=== PATIENT | male | born 1945 | race Asian ===

== ENCOUNTER 2016-12-09 01:22 | Observation (INO) | payer OTHER ==
--- NOTE | 2016-12-09 01:40 | PDOC ---
History of Present Illness - General History Source: Patient, Spouse Exam Limitations: No Limitations - History of Present Illness Initial Comments: 12/09/16 02:08 The patient is a 71 year old male with significant past medical history of hypertension, hyperlipidemia, and BPH who presents to the ED with s/p unwitnessed syncopal episode just prior to arrival. Patient reports he had a little too much eat when he developed some abdominal discomfort. He decided to go to the bathroom, where he found himself straining and subsequently loss consciousness. As per , she states finding the patient on the floor after she heard a loud noise. At time of evaluation, he reports having some chest discomfort and states never experiencing similar symptoms in the past. He denies headache, lightheadedness, diaphoresis, SOB, jaw pain, arm pain, shoulder pain, and nausea. The patient denies fever, chills, cough, vomiting, and diarrhea. Allergies: NKDA Social History: No alcohol, tobacco, or drug use reported. Past Surgical History: None reported <Nancy Barry - Last Filed: 12/09/16 03:18> - General History Source: Patient <Jarod De Paz - Last Filed: 12/09/16 03:51> - General Chief Complaint: Syncope/Near Syncope Stated Complaint: SYNCOPY Time Seen by Provider: 12/09/16 01:39 Past History <Nancy Barry - Last Filed: 12/09/16 03:18> - Psycho/Social/Smoking Cessation Hx Suicidal Ideation: No Smoking History: Never smoked Have you smoked in the past 12 months: No Information on smoking cessation initiated: No Hx Alcohol Use: No Drug/Substance Use Hx: No <Jarod De Paz - Last Filed: 12/09/16 03:51> - Past Medical History Allergies/Adverse Reactions: Allergies Allergy/AdvReac Type Severity Reaction Status Date / Time No Known Allergies Allergy Verified 12/09/16 01:35 Home Medications: Ambulatory Orders Amlodipine Besylate [Norvasc -] 10 mg PO DAILY 12/09/16 Cholecalciferol (Vitamin D3) [Vitamin D3] 5,000 unit PO DAILY 12/09/16 FA/Vit C/E/Zinc/Copper/Lut/Nestor [Ocuvel Capsule] 1 each PO DAILY 12/09/16 Simvastatin [Zocor -] 20 mg PO DAILY 12/09/16 Terazosin HCl 2 mg PO HS 12/09/16 Review of Systems - Review of Systems Able to Perform ROS?: Yes Comments:: 12/09/16 02:09 CONSTITUTIONAL: Absent: fever, chills, diaphoresis, generalized weakness, malaise, loss of appetite HEENT: Absent: rhinorrhea, nasal congestion, throat pain, throat swelling, difficulty swallowing, mouth swelling, ear pain, eye pain, visual Changes CARDIOVASCULAR: +chest discomfort, syncope Absent: palpitations, irregular heart rate, lightheadedness, peripheral edema RESPIRATORY: Absent: cough, shortness of breath, dyspnea with exertion, orthopnea, wheezing, stridor, hemoptysis GASTROINTESTINAL: +abdominal discomfort Absent: abdominal distension, nausea, vomiting, diarrhea, constipation, melena, hematochezia GENITOURINARY: Absent: dysuria, frequency, urgency, hesitancy, hematuria, flank pain, genital pain MUSCULOSKELETAL: Absent: myalgia, arthralgia, joint swelling SKIN: Absent: rash, itching, pallor NEUROLOGIC: Absent: headache, focal weakness or paresthesias, dizziness, unsteady gait, seizure, mental status changes, bladder or bowel incontinence <Nancy Barry - Last Filed: 12/09/16 03:18> *Physical Exam - Vital Signs Last Vital Signs Temp Pulse Resp BP Pulse Ox 97.6 F 58 L 20 123/74 95 12/09/16 01:33 12/09/16 01:33 12/09/16 01:33 12/09/16 01:33 12/09/16 01:33 - Physical Exam Comments: 12/09/16 02:13 GENERAL: Well developed, well nourished. Awake and alert. Mild distress. HEENT: Normocephalic, atraumatic. No racoon or walden sign. PERRLA, EOMI. No conjunctival pallor. Sclera are non-icteric. Moist mucous membranes. Oropharynx is clear. No hemotympanum. NECK: Supple. Full ROM. No JVD. Carotid pulses 2+ and symmetric, without bruits. No thyromegaly. No lymphadenopathy. CARDIOVASCULAR: Bradycardia. Regular rhythm. No murmurs, rubs, or gallops. Distal pulses are 2+ and symmetric. PULMONARY: No evidence of respiratory distress. Lungs clear to auscultation bilaterally. No wheezing, rales or rhonchi. ABDOMINAL: Soft. Non-tender. Non-distended. No rebound or guarding. No organomegaly. Normoactive bowel sounds. MUSCULOSKELETAL Normal range of motion at all joints. No bony deformities or tenderness. No CVA tenderness. EXTREMITIES: No cyanosis. No clubbing. No edema. No calf tenderness. SKIN: Warm and dry. Normal capillary refill. No rashes. No jaundice. NEUROLOGICAL: Alert, awake, appropriate. Answering questions slowly, but appropriately. Cranial nerves 2-12 intact. Moving all extremities. No gross focal neurological deficits. PSYCHIATRIC: Cooperative. Good eye contact. Appropriate mood and affect. <Nancy Barry - Last Filed: 12/09/16 03:18> - Vital Signs Last Vital Signs Temp Pulse Resp BP Pulse Ox 97.6 F 58 L 20 123/74 95 12/09/16 01:33 12/09/16 01:33 12/09/16 01:33 12/09/16 01:33 12/09/16 01:33 <Jarod De Paz - Last Filed: 12/09/16 03:51> Heart Score/ECG Review - ECG Impressions Comment:: 12/09/16 02:09 Sinus bradycardia @55bpm RBBB Abnormal ECG <Nancy Barry - Last Filed: 12/09/16 03:18> - History History: Moderately suspicious - Electrocardiogram EKG: Non specific repolarization disturbance - Age Age: >/= 65 - Risk Factors Risk Factors Heart Score: Yes Hx Hypercholesterolemia, Yes Hx Hypertension Based on the list above the patient has:: 1-2 risk factors - Troponin Troponin: </= normal limit - Score Heart Score - Total: 5 <Jarod De Paz - Last Filed: 12/09/16 03:51> ED Treatment Course - LABORATORY CBC & Chemistry Diagram: 12/09/16 01:32 12/09/16 01:32 - ADDITIONAL ORDERS Additional order review: 12/09/16 01:32 RBC 4.35 MCV 88.4 MCHC 33.9 RDW 13.6 MPV 7.6 Neutrophils % 67.4 Lymphocytes % 21.9 Monocytes % 7.5 Eosinophils % 2.1 Basophils % 1.1 - RADIOLOGY Radiograph Interpretation: 12/09/16 03:18 Exam: Noncontrast CT head Reviewed by Imaging conservation biology professor: Findings: Multiple axial images were obtained of the brain without contrast. There is no mass-effect, midline shift or hemorrhage. There is no intra-axial or extra-axial fluid collection. Atrophic involutional changes and chronic ischemic periventricular white matter changes are noted. The visualized portions of the paranasal sinuses are clear. The middle ear cavities and mastoids are clear. No calvarial fractures seen. Impression: No mass effect or intracranial hemorrhage. <Nancy Barry - Last Filed: 12/09/16 03:18> - LABORATORY CBC & Chemistry Diagram: 12/09/16 01:32 12/09/16 01:32 - RADIOLOGY Radiology Studies Ordered: Category Date Time Status HEAD CT WITHOUT CONTRAST [CT] Stat CT Scan 12/09/16 01:36 Ordered CHEST X-RAY PORTABLE* [RAD] Stat Radiology 12/09/16 01:36 Ordered <Jarod De Paz - Last Filed: 12/09/16 03:51> Medical Decision Making - Medical Decision Making 12/09/16 03:50 Dr. De Paz: The scribe's documentation has been prepared under my direction and personally reviewed by me in its entirery. I confirm that the note above accurately reflects all work, treatment, procedures, and medical decision making performed by me. <Jarod De Paz - Last Filed: 12/09/16 03:51> *DC/Admit/Observation/Transfer - Attestations Scribe Attestion: 12/09/16 02:10 Documentation prepared by Nancy Barry, acting as caregivers non medical for Jarod De Paz MD <Nancy Barry - Last Filed: 12/09/16 03:18> - Discharge Dispostion Admit: Yes <Jarod De Paz - Last Filed: 12/09/16 03:51> Diagnosis at time of Disposition: Syncope Qualifiers: Encounter type: initial encounter - Discharge Dispostion Condition at time of disposition: Stable
[2016-12-09] MEDS ORDERED: SODIUM CHLORIDE 1,000 ML IV STA (01:42)
[2016-12-09 01:51] LABS: BASOPHIL 1.1 % (0-2.0); EOSINOPHIL 2.1 % (0-4.5); MCHC 33.9 g/dl (32.0-35.9); MEAN CELL VOLUME 88.4 fl (80-96); MEAN PLT VOLUME 7.6 fl (7.5-11.1); NEUTROPHILS 67.4 % (42.8-82.8); PLATELET COUNT 203 K/MM3 (134-434); RDW 13.6 % (11.9-15.9)
[2016-12-09 02:04] LABS: INR 1.03 (0.82-1.09); PROTHROMBIN TIME (PATIENT) 11.3 SEC (9.98-11.88)
[2016-12-09] MEDS ORDERED: ASPIRIN 81 MG CHEWABLE TABLETS PO ONE (02:05)
[2016-12-09] MEDS ORDERED: ASPIRIN 81 MG CHEWABLE TABLETS ONE ×2 (02:09→11:45)
[2016-12-09 02:13] LABS: ALBUMIN 3.7 g/dl (3.4-5.0); ANION GAP 11 (8-16); BILIRUBIN,TOTAL 0.4 mg/dL (0.2-1.0); CALCIUM 8.3 mg/dL (8.5-10.1); CO2 25 mmol/L (21-32); CREATININE 1.1 mg/dL (0.7-1.3); GLUCOSE,RANDOM 154 mg/dL (74-106); SGOT/AST 29 U/L (15-37); SGPT/ALT 56 U/L (12-78); TOT PROT 6.6 g/dl (6.4-8.2)
[2016-12-09 02:16] LABS: ALK PHOS 54 U/L (45-117); TROPONIN I < 0.02 ng/ml (0.00-0.05)
[2016-12-09] MEDS ORDERED: morphine CARPU-JECT 2 MG/1 ML DISP.SYRIN IVPUSH ONE (03:54)
[2016-12-09] MEDS ORDERED: ONDANSETRON 4 MG/2 ML VIAL IVPUSH STA (03:54)
[2016-12-09] MEDS ORDERED: FAMOTIDINE 20 MG/50 ML IVPB 20 MG in PREMIX 50 IVPB ONE (03:54)
[2016-12-09] MEDS ORDERED: POTASSIUM CHLORIDE TABS 20 MEQ TABLET.ER (FP) PO ONE ×2 (03:57→04:07)
--- NOTE | 2016-12-09 04:03 | HP ---
CHIEF COMPLAINT: Syncope, Epigastric Pain PCP: Manny Serna HISTORY OF PRESENT ILLNESS: This is a 71 y/o man with a past medical history of HTN, HLD, BPH, Nasal/Neck Ca (s/p Chemo, [place] [facility] [place] Who presents to the emergency department with syncope, epigastric pain x last night. Patient speaks some Greek, primary language is Danish. Echo it line used name- Jesse, #[id number]. Patient reports after eating two donuts he felt "fullness" to his epigastrium, with belching. He reports while trying to have a BM, he was straining, he became dizzy, nauseous, and diaphoretic. His who speaks Greek said he fell forward hitting his head, with LOC. The assisted him back onto the toilet. Patient reports having a BM feeling better. Patient reports the epigastric fullness has improved since receiving the Pepcid in the ED. Patient denies fever, chills, cough, SOB, palpitations, vomiting, diarrhea, constipation , dysuria. ER course was notable for: (1) CT Brain- negative ICH, Mass or Lesion (2) EKG- Sinus Bradycardia RBBB (3) K- 3.2 repleted with KCL 40meq po Recent Travel: None PAST MEDICAL HISTORY: See HPI PAST SURGICAL HISTORY: None Social History: Smoking: Never Alcohol: None Drugs: None Family History: Non-contributory Allergies No Known Allergies Allergy (Verified 12/09/16 01:35) HOME MEDICATIONS: Medication Instructions Recorded Amlodipine Besylate [Norvasc -] 10 mg PO DAILY 12/09/16 Cholecalciferol (Vitamin D3) 5,000 unit PO DAILY 12/09/16 [Vitamin D3] FA/Vit C/E/Zinc/Copper/Lut/Nestor 1 each PO DAILY 12/09/16 [Ocuvel Capsule] Simvastatin [Zocor -] 20 mg PO DAILY 12/09/16 Terazosin HCl 2 mg PO HS 12/09/16 REVIEW OF SYSTEMS CONSTITUTIONAL: diaphoresis, generalized weakness Absent: fever, chills, malaise, loss of appetite, weight change HEENT: Absent: rhinorrhea, nasal congestion, throat pain, throat swelling, difficulty swallowing, mouth swelling, ear pain, eye pain, visual changes CARDIOVASCULAR: chest pain, syncope, lightheadedness Absent: palpitations, irregular heart rate, peripheral edema RESPIRATORY: Absent: cough, shortness of breath, dyspnea with exertion, orthopnea, wheezing, stridor, hemoptysis GASTROINTESTINAL: abdominal pain, nausea Absent: abdominal distension, vomiting, diarrhea, constipation, melena, hematochezia GENITOURINARY: Absent: dysuria, frequency, urgency, hesitancy, hematuria, flank pain, genital pain MUSCULOSKELETAL: Absent: myalgia, arthralgia, joint swelling, back pain, neck pain SKIN: Absent: rash, itching, pallor HEMATOLOGIC/IMMUNOLOGIC: Absent: easy bleeding, easy bruising, lymphadenopathy, frequent infections ENDOCRINE: Absent: unexplained weight gain, unexplained weight loss, heat intolerance, cold intolerance NEUROLOGIC: dizziness Absent: headache, focal weakness or paresthesias, unsteady gait, seizure, mental status changes, bladder or bowel incontinence PSYCHIATRIC: Absent: anxiety, depression, suicidal or homicidal ideation, hallucinations. PHYSICAL EXAMINATION Vital Signs - 24 hr 12/09/16 12/09/16 01:33 01:50 Temperature 97.6 F Pulse Rate 58 L Pulse Rate [ 57 L Radial] Respiratory 20 16 Rate Blood Pressure 123/74 Blood Pressure 123/74 [Right Arm] O2 Sat by Pulse 95 97 Oximetry (%) GENERAL: Awake, alert, and fully oriented, in no acute distress. HEAD: Normal with no signs of trauma. EYES: Pupils equal, round and reactive to light, extraocular movements intact, sclera anicteric, conjunctiva clear. No lid lag. EARS, NOSE, THROAT: Ears normal, nares patent, oropharynx clear without exudates. Moist mucous membranes. NECK: Normal range of motion, supple without lymphadenopathy, JVD, or masses. LUNGS: Breath sounds equal, clear to auscultation bilaterally. No wheezes, and no crackles. No accessory muscle use. HEART: Regular rate and rhythm, normal S1 and S2 without murmur, rub or gallop. Non-reproducible to palpation. ABDOMEN: Soft, tender to epigastrium, not distended, normoactive bowel sounds, no guarding, no rebound, no masses. No hepatomegaly or splenomegaly. MUSCULOSKELETAL: Normal range of motion at all joints. No bony deformities or tenderness. No CVA tenderness. UPPER EXTREMITIES: 2+ pulses, warm, well-perfused. No cyanosis. No clubbing. Cap refill <2 seconds. No peripheral edema. LOWER EXTREMITIES: 2+ pulses, warm, well-perfused. No calf tenderness. No peripheral edema. NEUROLOGICAL: Cranial nerves II-XII intact. Normal speech. Gait not observed. PSYCHIATRIC: Cooperative. Good eye contact. Appropriate mood and affect. SKIN: Warm, dry, normal turgor, no rashes or lesions noted. Laboratory Results - last 24 hr 12/09/16 12/09/16 12/09/16 01:32 01:32 01:32 WBC 8.0 RBC 4.35 Hgb 13.0 Hct 38.5 MCV 88.4 MCHC 33.9 RDW 13.6 Plt Count 203 MPV 7.6 Neutrophils % 67.4 Lymphocytes % 21.9 Monocytes % 7.5 Eosinophils % 2.1 Basophils % 1.1 INR 1.03 Sodium 140 Potassium 3.2 L Chloride 104 Carbon Dioxide 25 Anion Gap 11 BUN 19 H Creatinine 1.1 Creat Clearance w eGFR > 60 Random Glucose 154 H Calcium 8.3 L Total Bilirubin 0.4 AST 29 ALT 56 Alkaline Phosphatase 54 Creatine Kinase 93 Troponin I < 0.02 Total Protein 6.6 Albumin 3.7 - ECG Impressions Comment:: 12/09/16 02:09 Sinus bradycardia @55bpm RBBB Abnormal ECG - RADIOLOGY Radiograph Interpretation: 12/09/16 03:18 Exam: Noncontrast CT head Reviewed by Imaging transportation refrigeration technician: Findings: Multiple axial images were obtained of the brain without contrast. There is no mass-effect, midline shift or hemorrhage. There is no intra-axial or extra-axial fluid collection. Atrophic involutional changes and chronic ischemic periventricular white matter changes are noted. The visualized portions of the paranasal sinuses are clear. The middle ear cavities and mastoids are clear. No calvarial fractures seen. Impression: No mass effect or intracranial hemorrhage. ASSESSMENT/PLAN: This is a 71 y/o man with a PMHx of: HTN, HLD, Nasal/Neck Ca (s/p Chemo, [place], [facility] [place] Who presents to the ED with Syncope, epigastric pain, burning sensation to chest. Placed on Telemetry Observation for Syncope, Epigastric Pain , Hypokalemia for further evaluation of their emergent condition. Plan: 1. Syncope - Likely secondary to Vasovagal - Tele monitoring - CT Brain- see above - EKG- see above - CE neg x1 - Serial Enzymes x2 - IVF - Orthostatics 2. Chest Pain - Likely secondary to reflux vs ACS - Tele monitoring - HEART Score 4 - EKG-see above, no prior study to compare - Appreciate Cardiology Consult - CE neg x1, will continue to trend x2 - Asa - Echo in am 2. Epigastric Pain - Likely secondary to gastritis - Pepcid, IVFs given in ED - Continue IVF - Pepcid - Zofran prn - Repeat CBC, BMP later this am - NPO 3. Hypokalemia - Likely secondary to dehydration vs medication - Repleted with KCL 40meq in ED - Repeat BMP later this am - Replete according 4. HTN - Continue Norvasc with parameters - Monitor BP 5. HLD - Continue Zocor 6. Neck/Nasal Ca - s/p Chemo, RT - In remission per patient 7. F/E/N - NS@60ml/hr - K- repleted - NPO, advanced ad vikki Code Status: Full Code Problem List - Problem (1) Syncope Code(s): R55 - SYNCOPE AND COLLAPSE Qualifiers: Encounter type: initial encounter (2) Hypokalemia Code(s): E87.6 - HYPOKALEMIA (3) HTN (hypertension) Code(s): I10 - ESSENTIAL (PRIMARY) HYPERTENSION (4) HLD (hyperlipidemia) Code(s): E78.5 - HYPERLIPIDEMIA, UNSPECIFIED (5) BPH (benign prostatic hyperplasia) Code(s): N40.0 - BENIGN PROSTATIC HYPERPLASIA WITHOUT LOWER URINRY TRACT SYMP (6) DVT prophylaxis Code(s): PIB0097 - Visit type - Emergency Visit Emergency Visit: Yes ED Registration Date: 12/09/16 Care time: The patient presented to the Emergency Department on the above date and was hospitalized for further evaluation of their emergent condition. - New Patient This patient is new to me today: Yes Date on this admission: 12/09/16 - Critical Care Critical Care patient: No
[2016-12-09] MEDS ORDERED: morphine CARPU-JECT 4 MG/1 ML DISP.SYRIN ONE (04:07)
[2016-12-09] MEDS ORDERED: FAMOTIDINE 20 MG/50 ML IVPB 50 ML IVPB ONE (04:08)
[2016-12-09] MEDS ORDERED: ONDANSETRON 4 MG/2 ML VIAL ONE (04:08)
[2016-12-09 05:35] LABS: URINE APPEARANCE CLEAR; URINE BILIRUBIN NEGATIVE (NEGATIVE); URINE BLOOD NEGATIVE (NEGATIVE); URINE COLOR LTYELLOW; URINE GLUCOSE (UA) 1+ (NEGATIVE); URINE KETONE NEGATIVE (NEGATIVE); URINE LEUK ESTERASE NEGATIVE (NEGATIVE); URINE NITRITE NEGATIVE (NEGATIVE); URINE PROTEIN NEGATIVE (NEGATIVE); URINE UROBILINOGEN NEGATIVE E.U./dl (0.2-1.0)
[2016-12-09] MEDS ORDERED: SODIUM CHLORIDE 1,000 ML IV SCH (06:15)
[2016-12-09 08:32] LABS: BASOPHIL 0.4 % (0-2.0); EOSINOPHIL 0.1 % (0-4.5); MCH 30.2 pg (25.7-33.7); MCHC 33.9 g/dl (32.0-35.9); MEAN PLT VOLUME 7.8 fl (7.5-11.1); NEUTROPHILS 85.5 % (42.8-82.8); PLATELET COUNT 186 K/MM3 (134-434); RDW 13.3 % (11.9-15.9); WHITE BLOOD COUNT 9.2 K/mm3 (4.0-10.0)
--- NOTE | 2016-12-09 09:02 | PN ---
Progress Note (short form) - Note Progress Note: Cardiology Consult Dictated History from [employer] [id number] with borderline DM, history of head and neck CA s/p XRT and chemo 2011 presents with episode of light headedness and syncope at home in setting of abdominal discomfort (now resolved), mild nausea followed by bowel movement. Suspect vasovagal syncope in setting of stomach upset, however with abnormal ECG (without baseline), further investigation warranted. REC: Cycle cardiac enzymes, 3 sets. Tele to r/o arrhythmia Echo for EF assessment. Carotid Duplex Plan for stress MIBI prior to discharge, once full compliment enzymes available.
[2016-12-09 09:37] LABS: ANION GAP 15 (8-16); CALCIUM 8.5 mg/dL (8.5-10.1); CO2 19 mmol/L (21-32); GLUCOSE,RANDOM 116 mg/dL (74-106); PHOSPHOROUS 3.1 mg/dL (2.5-4.9); TROPONIN I < 0.02 ng/ml (0.00-0.05)
[2016-12-09 09:44] LABS: THYROID STIMULATING HORMONE 3.11 uIU/ml (0.358-3.74)
[2016-12-09] MEDS ORDERED: amLODIPine BESYLATE 5 MG TABLET (FP) ONE (11:49)
[2016-12-09] MEDS: ASPIRIN 81 MG CHEWABLE TABLETS PO SCH (11:51)
[2016-12-09] MEDS: amLODIPine BESYLATE 10 MG TABLET (FP) PO SCH (11:51)
--- NOTE | 2016-12-09 12:18 | CONS ---
DATE OF CONSULTATION: 12/09/2016 REQUESTING PROVIDER: Joycelyn Mccord NP REASON FOR CONSULTATION: Syncope. HISTORY OF PRESENT ILLNESS: Patient is Occitan-speaking. The history was obtained through the Occitan tire fabricator phone, tire fabricator [id number]. was also at bedside at the time of this history. The patient is a 71-year-old Occitan gentleman, a retired shoemaker, who has a history of head and neck cancer treated at [facility] with radiation and chemotherapy in 2011, now with no evidence of disease by his report. He also has a history of borderline diet-controlled diabetes and presents to the emergency room brought in by ambulance after an episode of syncope which occurred last evening at around midnight. Patient states that he woke up with generalized abdominal pain which is now resolved, nausea, diaphoresis, lightheadedness, and feeling as if he had to have a bowel movement. In that setting, patient had a syncopal episode at home and states that he hit his head in the bathroom. CT scan in the emergency department was negative for any acute intracranial pathology. He now has no chest pain, shortness of breath. His abdominal pain has resolved. He denies antecedent chest pain, palpitations, or shortness of breath at the time of the event. He has no history of coronary artery disease and denies history of prior myocardial infarction or a coronary revascularization. PAST MEDICAL HISTORY: Is as above. Also includes BPH, hyperlipidemia, diet controlled diabetes, vitamin D deficiency, hypertension, and history of head and neck cancer treated at [facility] in 2011 with chemotherapy and 30 sessions of radiation. Now, no evidence of disease as per patient report. ALLERGIES: None. HOME MEDICATIONS: Include terazosin 2 mg at bedtime, simvastatin 20 mg daily, vitamin D3 at 5000 units daily, amlodipine 10 mg daily. FAMILY HISTORY: Noncontributory to the presentation. SOCIAL HISTORY: He lives with , no kids, a retired shoemaker. No alcohol or tobacco. PHYSICAL EXAMINATION: Vital signs: Afebrile, temperature 97.5, pulse 62 to 80 sinus, blood pressure 113/57 (on presentation 123/74), O2 saturation is 97% on room air. HEENT: Anicteric. Neck: No bruits. Heart: S1, 2, regular, no murmurs. Chest: Clear. Abdomen: Soft, nontender. No rebound or guarding. Extremities: No edema. DIAGNOSTIC DATA: His EKG showed sinus bradycardia in the 50s with right bundle branch block and non-specific T-wave changes. There is no previous for comparison. Chest x-ray showed no acute pathology. LABORATORIES: White count 9.2, hematocrit 38.9, platelets 186. Sodium 140, potassium 3.2 (on presentation which was repleted, morning labs are pending), creatinine 1.1, BUN 19. LFTs were normal. His first set of cardiac enzymes was negative. ASSESSMENT: This is a 71-year-old male with probable vasovagal episode in the setting of gastrointestinal upset, now resolved. However, with his abnormal electrocardiogram and no previous for comparison, further investigation is warranted to rule out arrhythmias, rule out underlying ischemia, rule out vertebrobasilar insufficiency. PLAN: 1. Telemetry. 2. Full complement of cardiac enzymes. 3. Echocardiogram and carotid ultrasound. 4. Follow up electrolytes, replete potassium, and hydrate. 5. Plan for Persantine nuclear stress test once full complement of cardiac enzymes is available. Thank you for this consultation. LISA TALLEY M.D. [id number]
[2016-12-09 13:38] VITALS: BMI 26.6
--- NOTE | 2016-12-09 13:42 | PN ---
Physical Exam: SUBJECTIVE: Patient seen and examined in the ED while awaiting bed placement. present. Both patient and can speak and understand some Khmer. Patient denies any shortness of breath, chest pain, or weakness, states abdominal pain also resolved. Denies dizziness. OBJECTIVE: GENERAL: Awake, alert, and fully oriented, in no acute distress. HEAD: Normal with no signs of trauma. EYES: Pupils equal, round and reactive to light, extraocular movements intact EARS, NOSE, THROAT: Ears normal, nares patent, oropharynx clear without exudates. Moist mucous membranes. LUNGS: Breath sounds equal, clear to auscultation bilaterally. No wheezes, and no crackles. HEART: Regular rate and rhythm ABDOMEN: Soft, non tender, + bowel sounds, ate a turkey sandwich in ED without difficulty. UPPER EXTREMITIES: No peripheral edema. LOWER EXTREMITIES: No peripheral edema. NEUROLOGICAL: Normal speech. Gait not observed. PSYCHIATRIC: Cooperative. Good eye contact. Appropriate mood and affect. SKIN: Warm, dry, normal turgor, no rashes or lesions noted. Vital Signs Period Temp Pulse Resp BP Sys/Davies Pulse Ox Last 24 Hr 97.5 F-98.1 F 62-84 16-20 102-133/56-86 96-98 Laboratory Results - last 24 hr 12/09/16 12/09/16 12/09/16 05:15 07:40 07:40 WBC 9.2 RBC 4.38 Hgb 13.2 Hct 38.9 MCV 89.0 MCHC 33.9 RDW 13.3 Plt Count 186 MPV 7.8 Neutrophils % 85.5 H D Lymphocytes % 9.0 D Monocytes % 5.0 Eosinophils % 0.1 D Basophils % 0.4 Sodium 140 Potassium 4.5 D Chloride 106 Carbon Dioxide 19 L D Anion Gap 15 BUN 16 Creatinine 1.0 Random Glucose 116 H D Hemoglobin A1c % Calcium 8.5 Phosphorus 3.1 Magnesium 2.0 Troponin I < 0.02 Triglycerides Cholesterol Total LDL Cholesterol HDL Cholesterol TSH Urine Color Ltyellow Urine Appearance Clear Urine pH 6.0 Ur Specific [place] 1.014 Urine Protein Negative Urine Glucose (UA) 1+ H Urine Ketones Negative Urine Blood Negative Urine Nitrite Negative Urine Bilirubin Negative Urine Urobilinogen Negative Ur Leukocyte Esterase Negative 12/09/16 12/09/16 07:40 07:40 WBC RBC Hgb Hct MCV MCHC RDW Plt Count MPV Neutrophils % Lymphocytes % Monocytes % Eosinophils % Basophils % Sodium Potassium Chloride Carbon Dioxide Anion Gap BUN Creatinine Random Glucose Hemoglobin A1c % 6.3 H Calcium Phosphorus Magnesium Troponin I Triglycerides 89 Cholesterol 160 Total LDL Cholesterol 80 HDL Cholesterol 64 H TSH 3.11 Urine Color Urine Appearance Urine pH Ur Specific [place] Urine Protein Urine Glucose (UA) Urine Ketones Urine Blood Urine Nitrite Urine Bilirubin Urine Urobilinogen Ur Leukocyte Esterase Active Medications Generic Name Dose Route Start Last Admin Trade Name Jordonq PRN Reason Stop Dose Admin Amlodipine Besylate 10 mg 12/09/16 10:00 12/09/16 11:51 Norvasc - PO 10 mg DAILY SEAN Administration Aspirin 81 mg 12/09/16 10:00 12/09/16 11:51 Asa - PO 81 mg DAILY SEAN Administration Atorvastatin Calcium 10 mg 12/09/16 22:00 Lipitor - PO HS SEAN Famotidine/Sodium Chloride 50 mls @ 100 mls/hr 12/09/16 16:00 Pepcid 20 Mg Premixed Ivpb - IVPB BID SEAN Sodium Chloride 1,000 mls @ 75 mls/hr 12/09/16 06:15 12/09/16 06:31 Normal Saline - IV 75 mls/hr ASDIR SEAN Administration Terazosin HCl 2 mg 12/09/16 22:00 Hytrin - PO HS SEAN ASSESSMENT/PLAN: Patient is a 71 year old male with a significant past medical history of head and neck cancer s/p radiation and chemotherapy (2011) and borderline diabetes mellitus. He presented to the ED on 12/09/2016 with episodes of light headness and a syncopal episode at home in the setting of abdominal pain/discomfort. He states that he was sitting in the toilet trying to have a bowel movement after experiencing abdominal pain/discomfort. He denies losing consciousness. On my exam he denies abdominal pain and tolerated a turkey sandwich in the ED without abdominal symptoms/discomfort. He also denies chest pain or shortness of breath. Imaging: Carotid Doppler 12/09/2016 with small plaques in right common carotid bifurc. extending into the bulb and external carotid artery as well as small to moderate sized plaques in left bulb without evidence of hydrodynamic stenosis. Chest Xray 12/09/2016 with questionable small pleural effusion and infiltrates on left lung base, follow up recommended. Head CT 12/09/2016 no mass or intra-cranial hemorrhage - no acute changes Cardiology: Syncope - acute Assessment/Plan: Likely due to vasovagal event while straining to have a bowel movement vs. cardiac cause Continue telemonitoring. Head CT with no mass or hemorrhage, no acute changes EKG 12/09/2016 sinus bradycardia with RBBB, no previous EKGs to compare. Troponins negative x 3 Carotid doppler: small plaques in right common carotid bifurc. extending into the bulb and external carotid artery as well as small to moderate sized plaques in left bulb without evidence of hydrodynamic stenosis. Pending stress test Cardiology following Chest Pain - resolved Assessment/Plan: No further chest pain, continue telemonitoring Troponins negative x 3 Continue ASA 81mg daily Echo 12/09/16 with mild tricuspid regurg., trace pulm. valve regurg. Hypertension - chronic Assessment/Plan: Controlled on Norvasc, Monitor BPs Hyperlipidemia - chronic Assessment/Plan: On Lipitor. Lipid profile reviewed Pulmonary: Chest Xray with questionable small left pleural effusion, will need outpatient followup GI: Abdominal Pain - resolved Assessment/Plan: Likely related to acute gastritis Tolerating diet without abdominal discomfort On IV fluids, will d/c IVF in a.m. Endocrine: Diabetes Mellitus - chronic Assessment/Plan: Pt states he has been told by his PCP that he is a boderline diabetic. He states he controls his diabetes with diet. However, states pt is non compliant. Pt to follow up with PCP as outpatient Oncology: History of Neck/Nasal cancer Assessment/Plan: As per pt, no active treatments, in remission No interventions at this time F.E.N. Fluids: Normal saline @ 75cc/hr, will d/c fluids in a.m. Electrolytes: Hypokalemia, resolved Nutrition: diabetic low sodium diet/NPO for stress test Code Status: Requires inpatient observation. Full Code Visit type - Emergency Visit Emergency Visit: Yes ED Registration Date: 12/09/16 Care time: The patient presented to the Emergency Department on the above date and was hospitalized for further evaluation of their emergent condition. - New Patient This patient is new to me today: Yes Date on this admission: 12/10/16 - Critical Care Critical Care patient: No - Discharge Referral Referred to [facility] Med [facility] No
--- NOTE | 2016-12-09 14:12 | EKG ---
Test Reason : Blood Pressure : / mmHG Vent. Rate : 055 BPM Atrial Rate : 055 BPM P-R Int : 160 ms QRS Dur : 160 ms QT Int : 460 ms P-R-T Axes : 043 064 043 degrees QTc Int : 440 ms SINUS BRADYCARDIA RIGHT BUNDLE BRANCH BLOCK ABNORMAL ECG NO PREVIOUS ECGS AVAILABLE Confirmed by ANAY TORRES MD ([id number]) on 12/09/2016 2:11:42 PM Referred By: Confirmed By:ANAY TORRES MD
[2016-12-09] MEDS: FAMOTIDINE 20 MG/50 ML IVPB 50 ML IVPB SCH ×2 (16:59→21:53)
[2016-12-09] MEDS ORDERED: PT OWN MED DRAWER 7, Y5N ONE (21:25)
[2016-12-09] MEDS ORDERED: TERAZOSIN HCL 1 MG CAPSULE PO SCH (22:00)
[2016-12-09] MEDS ORDERED: ATORVASTATIN CA 10 MG TABLET (FP) PO SCH (22:00)
[2016-12-10 01:57] VITALS: TEMP 98.2
[2016-12-10 07:22] LABS: BASOPHIL 0.5 % (0-2.0); EOSINOPHIL 2.2 % (0-4.5); MCH 30.2 pg (25.7-33.7); MCHC 33.8 g/dl (32.0-35.9); MEAN CELL VOLUME 89.3 fl (80-96); MEAN PLT VOLUME 7.8 fl (7.5-11.1); NEUTROPHILS 68.5 % (42.8-82.8); PLATELET COUNT 194 K/MM3 (134-434); RDW 13.4 % (11.9-15.9); WHITE BLOOD COUNT 5.3 K/mm3 (4.0-10.0)
[2016-12-10 07:56] LABS: SGOT/AST 33 U/L (15-37); SGPT/ALT 60 U/L (12-78)
[2016-12-10 08:06] LABS: ALK PHOS 62 U/L (45-117); ANION GAP 11 (8-16); BILIRUBIN,TOTAL 0.7 mg/dL (0.2-1.0); CALCIUM 8.6 mg/dL (8.5-10.1); CO2 24 mmol/L (21-32); CREATININE 1.1 mg/dL (0.7-1.3); GLUCOSE,RANDOM 123 mg/dL (74-106); MAGNESIUM 1.9 mg/dL (1.8-2.4)
[2016-12-10 08:33] VITALS: BP 122/63; PULSE 69
--- NOTE | 2016-12-10 09:17 | PN ---
Progress Note (short form) - Note Progress Note: Cardiology Echo WNL; no arrhythmias noted on tele Carotid US with mild disease. Vitals stable with unremarkable/unchanged physical exam. Plan for stress MIBI today. Further reccs pending exam.
[2016-12-10] MEDS ORDERED: WATER IVPB ONE (10:00)
[2016-12-10] MEDS ORDERED: DEXTROSE 5% IVPB ONE (10:00)
[2016-12-10] MEDS ORDERED: DIPYRIDAMOLE STRESS TEST IVPB ONE (10:00)
[2016-12-10] MEDS: FAMOTIDINE 20 MG/50 ML IVPB 50 ML IVPB SCH (11:37)
[2016-12-10] MEDS: amLODIPine BESYLATE 10 MG TABLET (FP) PO SCH (11:37)
[2016-12-10] MEDS: ASPIRIN 81 MG CHEWABLE TABLETS PO SCH (11:37)
--- NOTE | 2016-12-10 12:47 | DS ---
Physical Exam: SUBJECTIVE: Patient seen and examined. Denies chest pain, abdominal pain or any other discomfort. Tolerating meals without difficulty. OBJECTIVE: GENERAL: Awake, alert, and fully oriented, in no acute distress. HEAD: Normal with no signs of trauma. EYES: Pupils equal, round and reactive to light, extraocular movements intact EARS, NOSE, THROAT: Ears normal, nares patent, oropharynx clear without exudates. Moist mucous membranes. LUNGS: Breath sounds equal, clear to auscultation bilaterally. No wheezes, and no crackles. HEART: Regular rate and rhythm ABDOMEN: Soft, non tender, + bowel sounds, tolerating meals without difficulty UPPER EXTREMITIES: No peripheral edema. LOWER EXTREMITIES: No peripheral edema. NEUROLOGICAL: Normal speech. steady gait PSYCHIATRIC: Cooperative. Good eye contact. Appropriate mood and affect. Vital Signs Period Temp Pulse Resp BP Sys/Davies Pulse Ox Last 24 Hr 96.8 F-98.2 F 67-80 16-22 117-134/63-86 96-99 PHYSICAL EXAM LABS Laboratory Results - last 24 hr 12/09/16 12/10/16 12/10/16 13:58 05:35 05:35 WBC 5.3 D RBC 4.47 Hgb 13.5 Hct 40.0 MCV 89.3 MCHC 33.8 RDW 13.4 Plt Count 194 MPV 7.8 Neutrophils % 68.5 Lymphocytes % 19.9 D Monocytes % 8.9 Eosinophils % 2.2 D Basophils % 0.5 Sodium 141 Potassium 4.1 Chloride 106 Carbon Dioxide 24 D Anion Gap 11 BUN 14 Creatinine 1.1 Creat Clearance w eGFR > 60 Random Glucose 123 H Calcium 8.6 Magnesium 1.9 Total Bilirubin 0.7 D AST 33 ALT 60 Alkaline Phosphatase 62 Troponin I < 0.02 Total Protein 7.0 Albumin 4.0 HOSPITAL COURSE: Date of Admission:12/09/16 Date of Discharge: 12/10/16 ASSESSMENT/PLAN: Patient is a 71 year old male with a significant past medical history of head and neck cancer s/p radiation and chemotherapy (2011) and borderline diabetes mellitus. He presented to the ED on 12/09/2016 with episodes of lightheadness and a syncopal episode at home in the setting of abdominal pain/discomfort. He states that he was sitting in the toilet trying to have a bowel movement after experiencing abdominal pain/discomfort. He denies losing consciousness. On my exam he denies abdominal pain and tolerated a turkey sandwich in the ED without abdominal symptoms/discomfort. He also denies chest pain or shortness of breath. Imaging: Carotid Doppler 12/09/2016 with small plaques in right common carotid bifurc. extending into the bulb and external carotid artery as well as small to moderate sized plaques in left bulb without evidence of hydrodynamic stenosis. Chest Xray 12/09/2016 with questionable small pleural effusion and infiltrates on left lung base, follow up recommended. Head CT 12/09/2016 no mass or intra-cranial hemorrhage - no acute changes Cardiology: Syncope - 1 syncopal event at home/none during hospitalization - resolved Assessment/Plan: Likely due to vasovagal event while straining to have a bowel movement vs. cardiac cause No cardiac events on tele Head CT with no mass or hemorrhage, no acute changes EKG 12/09/2016 sinus bradycardia with RBBB, no previous EKGs to compare. Troponins negative x 3 Carotid doppler: small plaques in right common carotid bifurc. extending into the bulb and external carotid artery as well as small to moderate sized plaques in left bulb without evidence of hydrodynamic stenosis. Normal stress test Chest Pain - resolved Assessment/Plan: No further chest pain, continue telemonitoring Troponins negative x 3 Continue ASA 81mg daily Echo 12/09/16 with mild tricuspid regurg., trace pulm. valve regurg. Hypertension - chronic Assessment/Plan: Controlled on Norvasc, Monitor BPs Hyperlipidemia - chronic Assessment/Plan: On Lipitor. Lipid profile reviewed Pulmonary: Chest Xray with questionable small left pleural effusion, will need outpatient followup GI: Abdominal Pain - resolved Assessment/Plan: Likely related to acute gastritis Tolerating diet without abdominal discomfort Endocrine: Diabetes Mellitus - chronic Assessment/Plan: Pt states he has been told by his PCP that he is a boderline diabetic. He states he controls his diabetes with diet. However, states pt is non compliant. Pt to follow up with PCP as outpatient Oncology: History of Neck/Nasal cancer Assessment/Plan: As per pt, no active treatments, in remission No interventions at this time Disposition: discharge home today. Will need close follow up for diabetes management and follow up on Chest xray findings. Minutes to complete discharge: 45 Discharge Summary Reason For Visit: SYNCOPE Current Active Problems BPH (benign prostatic hyperplasia) (Acute) DVT prophylaxis (Acute) HLD (hyperlipidemia) (Acute) HTN (hypertension) (Acute) Hypokalemia (Acute) Syncope (Acute) Condition: Stable - Instructions Referrals: Manny Adams [Primary Care Provider] - - Home Medications Comprehensive Discharge Medication List: Ambulatory Orders Amlodipine Besylate [Norvasc -] 10 mg PO DAILY 12/09/16 Cholecalciferol (Vitamin D3) [Vitamin D3] 5,000 unit PO DAILY 12/09/16 FA/Vit C/E/Zinc/Copper/Lut/Nestor [Ocuvel Capsule] 1 each PO DAILY 12/09/16 Simvastatin [Zocor -] 20 mg PO DAILY 12/09/16 Terazosin HCl 2 mg PO HS 12/09/16 This patient is new to me today: No Emergency Visit: Yes ED Registration Date: 12/09/16 Care time: The patient presented to the Emergency Department on the above date and was hospitalized for further evaluation of their emergent condition. Critical Care patient: No - Discharge Referral Referred to [facility] Med P.C.: No
== END 2016-12-10 13:50 | disposition home or self-care (01) ==
LOC: JER 01:22 → JERBED 04:34 → J4W 14:46
PROVIDERS: ADMIT Internal Medicine; ATTEND Nurse Practitioner Family
DX: R55 Syncope and collapse (principal); R07.89 Other chest pain; K29.60 Other gastritis without bleeding; E87.6 Hypokalemia; I10 Essential (primary) hypertension; E78.5 Hyperlipidemia, unspecified; N40.0 Benign prostatic hyperplasia without lower urinary tract symptoms; Z85.89 Personal history of malignant neoplasm of other organs and systems; E11.9 Type 2 diabetes mellitus without complications; I45.19 Other right bundle-branch block
CPT/HCPCS: 36415; 70450-TC; 71010-TC; 78452-TC; 80048; 80053; 80061; 81003; 82550; 83036; 83721; 83735; 84100; 84443; 84484; 85025; 85610; 87086; 93005; 93010; 93017; 93306-TC; 93880-TC; 99284-25; A9502; G0378; J1245